=== PATIENT | male | born 1950 | race Caucasian/White ===

== ENCOUNTER 2021-04-24 18:08 | Emergency (ER) | payer OTHER ==
[~2021-04-24 18:08] MED LIST: ARICEPT5 MG PO; ASPIRIN EC81 MG PO; B-1100 MG PO; COZAAR25 MG PO; ELIQUIS 5 MG TAB5 MG PO; FENOFIBRATE160 MG PO; FLOMAX 0.4 MG0.4 MG PO; FOLIC ACID 1 MG1 MG PO; GLUCOTROL 10 MG10 MG PO; GLUCOTROL5 MG PO; HUMALOG 10100 UNITS/ SC; JARDIANCE25 MG PO; LANTUS INS100 UTS/M1 SQ; LEVEMIR 10100 UNITS/ SQ; LEVEMIR FL100 UNIT/1 SQ; LOPRESSOR 50 MG50 MG PO; LYRICA300 MG PO; METOPROLOL TART50 MG PO; NEURONTIN 400400 MG PO; NORVASC 5 MG TAB5 MG PO; NOVOLOG 10100 UNITS1 SQ; PLAVIX 75 MG TA75 MG PO; SIMVASTATIN40 MG PO; TAB-A-VITE1 EACH PO; THERAGRAN TAB1 EA PO; VALIUM 5 MG TAB5 MG PO; ZOFRAN4 MG PO; ZOLOFT50 MG PO
[2021-04-24 20:55] LABS: HEMOGLOBIN 13.2 gm/dl (14.0-17.5); RED BLOOD COUNT 4.39 M/UL (4.20-5.50); WHITE BLOOD COUNT 7.6 K/UL (4.5-11.0)
[2021-04-24 21:13] LABS: BUN/CREATININE RATIO 29 (0-10)
[2021-04-24] MEDS ORDERED: HYDROCODON-ACE1 EAC4 PO (23:16)
== END 2021-04-24 23:30 | disposition home or self-care (01) ==
LOC: ER1 18:08
PROVIDERS: Family Medicine
DX: S93.401A Sprain of unspecified ligament of right ankle, initial encounter (principal); I48.91 Unspecified atrial fibrillation; E11.9 Type 2 diabetes mellitus without complications; I10 Essential (primary) hypertension; E78.5 Hyperlipidemia, unspecified; J44.9 Chronic obstructive pulmonary disease, unspecified; F17.200 Nicotine dependence, unspecified, uncomplicated; Z88.8 Allergy status to other drugs, medicaments and biological substances; W19.XXXA Unspecified fall, initial encounter; Y92.009 Unspecified place in unspecified non-institutional (private) residence as the place of occurrence of the external cause
CPT/HCPCS: 73564; 73600; 80053; 85025; 93005; 99284